=== PATIENT | female | born 1995 | race Hispanic/Latino ===

== ENCOUNTER 2020-01-22 22:56 | Emergency (ER) | payer OTHER ==
[~2020-01-22] VITALS: Ht 154.9 cm; Wt 65.9 kg
--- NOTE | 2020-01-23 00:36 | REPVR ---
PROCEDURE INFORMATION: Exam: XR Left Foot Complete Exam date and time: 01/22/2020 12:14 AM Age: 24 years old Clinical indication: Foot; Left; Patient HX: Pain in area of distal 1st metatarsal; Additional info: Foot pain TECHNIQUE: Imaging protocol: XR Left foot. Views: 3 or more views. COMPARISON: No relevant prior studies available. FINDINGS: Bones/joints: There is an acute minimally displaced intra-articular fracture involving the lateral aspect of the base of the distal phalanx of the left great toe. No other fractures are noted. The Lisfranc alignment is within normal limits. The joint spaces are preserved. No arthropathy is seen. Soft tissues: There is soft tissue swelling involving the left great toe. IMPRESSION: Acute minimally displaced intra-articular fracture involving the lateral aspect of the base of the distal phalanx of the left great toe. Electronically signed by: Pantera Sutherland On 01/23/2020 00:36:08 AM
[2020-01-23 01:15] VITALS: BP 136/84
== END 2020-01-23 01:17 | disposition home or self-care (01) ==
LOC: M ED 22:56
DX: S92.422A Displaced fracture of distal phalanx of left great toe, initial encounter for closed fracture (principal); Y93.72 Activity, wrestling; Y92.009 Unspecified place in unspecified non-institutional (private) residence as the place of occurrence of the external cause; Y99.9 Unspecified external cause status